=== PATIENT | female | born 1985 | race African-American/Black ===

== ENCOUNTER 2020-12-06 01:42 | Emergency (ER) | payer SELFPAY ==
[~2020-12-06] VITALS: Ht 175.3 cm; Wt 77.3 kg
[2020-12-06 01:42] VITALS: BP 125/67
--- NOTE | 2020-12-06 02:36 | PHYS DOC ---
Past History Past Medical History: Asthma Past Surgical History: No Surgical History Smoking: Cigarettes Alcohol Use: None Drug Use: None General Adult EDM: Chief Complaint: LOWER EXTREMITY SWELLING HPI: HPI: 35-year-old female presents with report of right lower extremity swelling and pain. Patient is unsure how long the swelling has been going on. Patient reports she has "been walking a lot. Patient presents with garbage bags and backpacks full of clothing. Patient very somnolent. Denies any drug use. Denies history of DVT. Denies chest pain. History of present illness limited secondary to patient being uncooperative with questioning Review of Systems: Review of Systems: Constitutional: Denies fever or chills Respiratory: Denies cough or shortness of breath Cardiovascular: Denies chest pain or palpitations Musculoskeletal: Reports leg swelling and pain Integument: Denies rash or skin lesions Review of systems limited secondary to patient being uncooperative with questioning Allergies: Allergies: Allergies Coded Allergies Type Severity Reaction Last Updated Verified No Known Drug Allergies 12/06/20 No Physical Exam: PE: Constitutional: Well developed, well nourished, no acute distress, somnolent HENT: Normocephalic, atraumatic Eyes: Conjunctiva normal, no discharge Neck: Normal range of motion, no tenderness, supple Lungs & Thorax: No respiratory distress, equal chest rise and fall Skin: Warm, dry Extremities: Right calf tenderness, ROM intact, right lower extremity edema and increased warmth in comparison to left, +2/ 4 DP pulses bilaterally Neurologic: Somnolent, moving all extremities Current Patient Data: Vital Signs: Vital Signs Date Time Temp Pulse Resp B/P (MAP) Pulse Ox O2 Delivery O2 Flow Rate FiO2 12/06/20 01:42 99.6 108 18 125/67 (86) 99 Room Air EKG: EKG: [] Radiology/Procedures: Radiology/Procedures: PROCEDURE: VENOUS LOWER EXTREMITY RIGHT STUDY: US DPLX VENOUS EXTREMITY LOWER RT INDICATION: Right lower extremity swelling. DVT. TECHNIQUE: Color-flow and pulsed wave duplex ultrasound with compression of venous structures of the right lower extremity. COMPARISON: None Available. FINDINGS: Duplex ultrasound with compression of the deep venous structures of the right lower extremity from the common femoral vein through the popliteal vein is negative for DVT. The posterior tibial and peroneal veins are segmentally visualized and patent where seen. Normal venous waveforms and augmentation are noted throughout. Nonspecific lower extremity subcutaneous edema. IMPRESSION: 1. No deep venous thrombosis throughout the right lower extremity. 2. Lower extremity subcutaneous edema. Electronically signed by: SATINDER CRISOSTOMO MD (12/06/2020 3:24 AM) [facility] Course & Med Decision Making: Course & Med Decision Making Pertinent Imaging studies reviewed. (See chart for details) Patient presents with lower extremity swelling on right with associated pain. Patient noncompliant with questioning as she continues to fall back asleep unless abruptly awoken. Patient does not appear concerned with having to answer questions. Patient presents with multiple garbage bags and backpacks full of clothing and appears homeless. Patient immediately started to make her bed and asked for blankets. Patient cleaned herself in the sink. Patient appears to want to sleep in the department as a chief complaint however does report some right lower extremity swelling and pain. Concern for possible DVT. Venous Doppler therefore obtained. Dragon Disclaimer: Dragon Disclaimer: This electronic medical record was generated, in whole or in part, using a voice recognition dictation system. Departure Departure: Impression: Primary Impression: Edema of right lower leg Additional Impressions: Encounter for medication refill Cellulitis Qualified Codes: L03.115 - Cellulitis of right lower limb Disposition: 01 DC HOME SELF CARE/HOMELESS Condition: STABLE Patient Instructions: Cellulitis, [id number], Medication Refill, Emergency Department, Peripheral Edema Additional Instructions: Take over the counter Tylenol and/or Ibuprofen for pain or discomfort. Scripts Clindamycin Hcl (CLINDAMYCIN HCL) 300 Mg Capsule 1 CAP PO TID for infection for 7 Days, #21 CAP Prov: JAVIER BERMUDEZ DO 12/06/20 Albuterol Sulfate (PROAIR HFA INHALER) 8.5 Gm Hfa.aer.ad 2 PUFF IH PRN Q4-6HRS PRN for wheezing, #1 INHALER 0 Refills Prov: JAVIER BERMUDEZ DO 12/06/20 JAVIER BERMUDEZ DO Dec 06, 2020 02:36
--- NOTE | 2020-12-06 03:27 | RAD ---
STUDY: US DPLX VENOUS EXTREMITY LOWER RT INDICATION: Right lower extremity swelling. DVT. TECHNIQUE: Color-flow and pulsed wave duplex ultrasound with compression of venous structures of the right lower extremity. COMPARISON: None Available. FINDINGS: Duplex ultrasound with compression of the deep venous structures of the right lower extremity from th e common femoral vein through the popliteal vein is negative for DVT. The posterior tibial and peroneal veins are segmentally visualized and patent where seen. Normal veno us waveforms and augmentation are noted throughout. Nonspecific lower extremity subcutaneous edema. IMPRESSION: 1. No deep venous thrombosis throughout the right lower extremity. 2. Lower extremity subcutaneous edema. Electronically signed by: SATINDER CRISOSTOMO MD (12/06/2020 3:24 AM) [facility]
[2020-12-06] MEDS ORDERED: ALBU2.5V8 IH (03:30)
[2020-12-06] MEDS ORDERED: CLIN300C9 PO (03:30)
[2020-12-06] MEDS ORDERED: CLINDAMYCIN HCL 150 MG CAPSULE PO ONE (03:45)
== END 2020-12-06 04:00 | disposition home or self-care (01) ==
LOC: ER 01:42
DX: R60.0 Localized edema (principal); L03.115 Cellulitis of right lower limb; Z76.0 Encounter for issue of repeat prescription; J45.909 Unspecified asthma, uncomplicated; F17.210 Nicotine dependence, cigarettes, uncomplicated
CPT/HCPCS: 93971; 99284